=== PATIENT | female | born 1975 | race African-American/Black ===

== ENCOUNTER 2016-10-07 01:10 | Emergency (ER) | payer OTHER ==
[~2016-10-07] VITALS: Ht 165.1 cm; Wt 84.0 kg
[2016-10-07 02:02] LABS: HEMATOCRIT 39.5 % (36.0-46.0); MCH 31.6 PG (29.0-34.0); MCHC 35.4 G/DL (30.0-36.0); MCV 89.2 FL (83-99); PLATELET COUNT 284 K/uL (156-360); RBC DIS.WIDTH-CV 12.4 % (11.8-14.6); RBC DIS.WIDTH-SD 39.8 % (39-53); RED BLOOD COUNT 4.43 M/uL (3.80-5.20); WHITE BLOOD COUNT 11.6 K/uL (4.1-10.2)
[2016-10-07] MEDS ORDERED: ZITHROMAX Z-PA250 MG PO (02:10)
[2016-10-07] MEDS ORDERED: TYLENOL WITH C1 EACH PO (02:10)
[2016-10-07 02:12] LABS: CHLORIDE 109 mEq/L (99-109); POTASSIUM 3.8 mEq/L (3.7-5.4); SODIUM 142 mEq/L (136-147)
[2016-10-07] MEDS ORDERED: ROBITUSSIN AC,T10 ML PO (02:12)
[2016-10-07 02:14] LABS: GLUCOSE 117 mg/dL (70-99)
[2016-10-07 02:15] LABS: ANION GAP 11 MEQ/L (2-14)
[2016-10-07 02:19] LABS: GFR ESTIMATE (CALCULATED) > 59 mL/min/; UREA NITROGEN (BUN) 10 mg/dL (9-23)
[2016-10-07 02:35] VITALS: BP 142/83
== END 2016-10-07 02:35 | disposition home or self-care (01) ==
LOC: EME 01:10
DX: J20.9 Acute bronchitis, unspecified (principal); J45.909 Unspecified asthma, uncomplicated
CPT/HCPCS: 71020; 80048; 85027; 99281; 99284